=== PATIENT | female | born 1950 | race Caucasian/White ===

== ENCOUNTER 2018-05-30 13:37 | Inpatient (IN) | payer MEDICARE, MEDICAID ==
[2018-05-30] MEDS ORDERED: 0.9 % SODIUM CHLORIDE 1,000 ML BAG IV ONE (14:08)
--- NOTE | 2018-05-30 14:13 | Emergency Department Record ---
History of Present Illness - General Chief Complaint: Fever Stated Complaint: fever,runny nose,shakes, Time Seen by Provider: 05/30/18 14:01 Source: Patient Mode of Arrival: Ambulatory Limitations: No limitations - History of Present Illness Initial Comments: The patient is here due to not feeling well for 3 days. She has been weak and fatigued and her resting tremor has been worse. She denies any SANDS, ST, cough, AP , CP or dysuria. She was seen in the family practice clinic and was sent to the ER for eval. Complaint: Fever, Malaise, Weakness Onset/Timin -: Days(s) Temperature Source: Subjective Treatments Prior to Arrival: None - Related Data Home Medications Medication Instructions Recorded Confirmed Last Taken Cholecalciferol (Vitamin D3) 2,000 unit PO DAILY 05/30/18 05/30/18 05/30/18 [Vitamin D3] Allergies Allergy/AdvReac Type Severity Reaction Status Date / Time No Known Drug Allergies Allergy Unknown Verified 05/30/18 13:42 [NO KNOWN DRUG ALLERGIES] Travel Screening - Travel/Exposure Within Last 30 Days Have you traveled within the last 30 days?: Yes Location Detail:: [place] - Travel/Exposure Within Last Year Have you traveled outside the [place] in the last year?: No - Additonal Travel Details Have you been exposed to anyone with a communicable illness?: No - Travel Symptoms Symptom Screening: None Review of Systems Constitutional: Reports: Malaise. Denies: Chills, Fever Eyes: Denies: Eye discharge ENT: Denies: Congestion Respiratory: Reports: Cough (chronic.). Denies: Dyspnea Cardiovascular: Denies: Arrhythmia, Chest pain Endocrine: Reports: Fatigue Gastrointestinal: Denies: Diarrhea, Nausea Genitourinary: Denies: Dysuria Musculoskeletal: Denies: Back pain Skin: Denies: Bruising Past Medical History - SOCIAL HISTORY Smoking Status: Current every day smoker Alcohol Use: None Drug Use: None - RESPIRATORY Hx Respiratory Disorders: No - CARDIOVASCULAR Hx Cardio Disorders: No - NEURO Hx Neuro Disorders: Yes Hx Seizures: Yes - GI Hx GI Disorders: No - Hx Genitourinary Disorders: No - ENDOCRINE Hx Endocrine Disorders: Yes Hx Thyroid Disease: Yes - MUSCULOSKELETAL Hx Musculoskeletal Disorders: No - PSYCH Hx Psych Problems: No - HEMATOLOGY/ONCOLOGY Hx Hematology/Oncology Disorders: No Family Medical History Any Significant Family History?: Yes Hx Cancer: Father, Brother/Sister Hx Resp Disorders: Father Physical Exam - General General Appearance: Alert, Oriented x3, Cooperative, No acute distress - Head Head exam: Atraumatic, Normocephalic, Normal inspection - Eye Eye exam: Normal appearance, PERRL, EOMI - Neck Neck exam: Normal inspection, Full ROM. negative: Tenderness - Respiratory Respiratory exam: Normal lung sounds bilaterally. negative: Respiratory distress - Cardiovascular Cardiovascular Exam: Regular rate, Normal rhythm, Normal heart sounds - GI/Abdominal GI/Abdominal exam: Soft, Normal bowel sounds. negative: Tenderness - Extremities Extremities exam: Normal inspection, Full ROM, Normal capillary refill. negative: Tenderness - Back Back exam: Reports: Normal inspection, Full ROM. Denies: Muscle spasm, Rash noted, Tenderness - Neurological Neurological exam: Alert, Normal gait, Oriented X3, Other (The patient does have a resting tremor that she says is worse for the last few days.). negative : Abnormal gait, Altered, Motor sensory deficit - Psychiatric Psychiatric exam: negative: Agitated, Anxious - Skin Skin exam: negative: Petechiae, Rash Course Vital Signs 05/30/18 13:46 Temperature 101.1 F H Pulse Rate 101 H Respiratory 20 Rate Blood Pressure 128/64 Pulse Ox 99 - Reevaluation(s) Reevaluation #1: The patient is doing well at this time. She is hemodynamically stable. I did discuss the pneumonia on xray and the need for admission and the patient agreed. I then did discuss the case with Corinne (OIL TESTER) and she does accept the admission. 05/30/18 15:24 Reevaluation #2: I also did discuss with Corinne the need to order a chest CT while inpatient to make sure there is no L lung tumor. She does agree to the plan. 05/30/18 15:32 Medical Decision Making - Data Complexity MDM Data: Labs Ordered and/or Reviewed, X-Ray Ordered and/or Reviewed - Lab Data Result diagrams: 05/30/18 13:50 05/30/18 13:50 - Radiology Data Radiology results: Report reviewed (CXR: L sided pneumonia.) Disposition Disposition: Admit Clinical Impression: Pneumonia, organism unspecified Disposition: Still a Patient at [facility] Decision to Admit: Admit from ER Decision to Admit Date: 05/30/18 Decision to Admit Time: 15:25 Accepting Physician: Gertrude Time Discussed w/Accepting Physician: 15:25 Condition: (2) Stable Forms: Patient Portal Access Time of Disposition: 15:25 Quality - Quality Measures Quality Measures: N/A - Blood Pressure Screening View Details: Yes Does Patient Have Any of the Following: No Blood Pressure Classification: Pre-Hypertensive BP Reading Systolic Measurement: 128 Diastolic Measurement: 64 Screening for High Blood Pressure: < Pre-Hypertensive BP, F/U Documented > [ [id number]] Pre-Hypertensive Follow-up Interventions: Referral to alternative/primary care provider.
[2018-05-30 14:33] LABS: HEMATOCRIT 44.3 % (35.0-47.0); HEMOGLOBIN 15.1 gm/dl (11.6-16.0); MEAN CELL VOLUME 91.3 fl (81-97); MEAN CORPUSCULAR HEMOGLOBIN 31.1 pg (27-33); MEAN CORPUSCULAR HGB CONC 34.1 g/dl (32-36); PLATELET COUNT 201 K/uL (130-400); RED BLOOD COUNT 4.85 M/uL (3.80-5.40); RED CELL DISTRIBUTION WIDTH 12.3 % (11.5-14.5); WHITE BLOOD COUNT W/O DIFF 10.6 K/uL (4.2-12.2)
[2018-05-30 14:44] LABS: BLOOD UREA NITROGEN 18 mg/dL (8-23); CREATININE 0.8 mg/dL (0.5-0.9); EST GLOMERULAR FILTRATION RATE > 60 mL/min
[2018-05-30] MEDS ORDERED: ACETAMINOPHEN 325 MG TAB PO ONE (14:46)
[2018-05-30 14:47] LABS: GLUCOSE,RANDOM 137 mg/dL (74-109)
[2018-05-30 14:49] LABS: C-REACTIVE PROTEIN 25.15 mg/dL (<0.5); CARBAMAZEPINE (TEGRETOL) 9.2 ug/mL (4.0-12.0)
[2018-05-30] MEDS ORDERED: POTASSIUM CHLORIDE 20 MEQ TABLET PO ONE (15:03)
[2018-05-30] MEDS ORDERED: CEFTRIAXONE SODIUM 1 GM in 0.9 % SODIUM CHLORIDE 100ML 100 ML IVPB ONE (15:04)
[2018-05-30] MEDS ORDERED: AZITHROMYCIN 500 MG in 0.9 % SODIUM CHLORIDE 250ML 250 ML IVPB ONE (15:05)
[2018-05-30 15:51] LABS: URINE APPEARANCE CLEAR; URINE BILIRUBIN SMALL (NEGATIVE); URINE BLOOD SMALL (NEGATIVE); URINE COLOR ORANGE; URINE GLUCOSE (UA) NEGATIVE (NEGATIVE); URINE KETONE NEGATIVE (NEGATIVE); URINE LEUKOCYTE ESTERASE NEGATIVE (NEGATIVE); URINE NITRITE NEGATIVE (NEGATIVE)
[2018-05-30 16:00] LABS: URINE AMORPHOUS SEDIMENT 2+; URINE MUCUS HEAVY; URINE RBC 0 - 2 (NONE SEEN); URINE WBC 0 - 2 (0-2/hpf)
[2018-05-30] MEDS: ACETAMINOPHEN 325 MG TAB PO PRN (20:06)
[2018-05-30] MEDS: LEVETIRACETAM 500 MG TABLET PO SCH ×2 (21:56→22:03)
[2018-05-30] MEDS: QUETIAPINE FUMARATE 100 MG TABLET PO SCH (21:56)
[2018-05-30] MEDS ORDERED: CARBAMAZEPINE 200 MG TABLET PO SCH (22:00)
[2018-05-30] MEDS ORDERED: TOPIRAMATE 100MG TABLET PO SCH (22:00)
[2018-05-30] MEDS: IPRATROPIUM/ALBUTEROL (0.5MG/3MG) NEB INH PRN (22:14)
[2018-05-30] MEDS: 0.9 % SODIUM CHLORIDE 1000ML 1,000 ML IV PRN (22:15)
[2018-05-30] MEDS: IBUPROFEN 600 MG TABLET PO PRN (22:53)
[2018-05-31] MEDS: 0.9 % SODIUM CHLORIDE 1000ML 1,000 ML IV PRN ×2 (06:15→14:55)
[2018-05-31] MEDS: CEFTRIAXONE 1GM/50ML BAG 1 GM/50 ML BAG IVPB SCH ×2 (06:21→18:27)
[2018-05-31] MEDS: LEVOTHYROXINE SODIUM 25 MCG TABLET PO SCH (06:22)
[2018-05-31] MEDS: ACETAMINOPHEN 325 MG TAB PO PRN ×2 (06:22→22:29)
[2018-05-31 06:40] LABS: BASO % 0.2 % (0-6); GRAN % 78.6 % (47-80); HEMATOCRIT 38.8 % (35.0-47.0); HEMOGLOBIN 12.7 gm/dl (11.6-16.0); LYMPH % 12.9 % (16-45); MEAN CELL VOLUME 92.6 fl (81-97); MEAN CORPUSCULAR HEMOGLOBIN 30.3 pg (27-33); MEAN CORPUSCULAR HGB CONC 32.7 g/dl (32-36); MEAN PLATELET VOLUME 9.5 fl (7.4-10.4); MONO % 8.3 % (0-9); PLATELET COUNT 149 K/uL (130-400); RED BLOOD COUNT 4.19 M/uL (3.80-5.40); RED CELL DISTRIBUTION WIDTH 12.3 % (11.5-14.5); WHITE BLOOD COUNT W/O DIFF 6.3 K/uL (4.2-12.2)
[2018-05-31 06:58] LABS: ALB/GLOB RATIO 0.9 (1.1-1.8); ALKALINE PHOSPHATASE 68 U/L (35-104); ALT/SGPT 18 U/L (<33); AST/SGOT 21 U/L (10.0-35.0); BLOOD UREA NITROGEN 12 mg/dL (8-23); CREATININE 0.5 mg/dL (0.5-0.9); EST GLOMERULAR FILTRATION RATE > 60 mL/min; GLUCOSE,RANDOM 98 mg/dL (74-109); TOTAL PROTEIN 6.2 g/dL (6.6-8.7)
--- NOTE | 2018-05-31 07:43 | RADIOLOGY REPORT ---
EXAM: CHEST, TWO VIEWS HISTORY: DIFFICULTY BREATHING. TECHNIQUE: Frontal and lateral views of the chest were performed. Comparison: None. FINDINGS: The heart size is normal. There is a round opacity in the superior segment of the left lower lobe measuring 5.2 x 6.1 cm. This may represent focal pneumonitis. Neoplasm is not excluded. No pleural effusion. The osseous structures are normal. IMPRESSION: 5.2 X 6.1 CM FOCAL OPACITY IN THE SUPERIOR SEGMENT OF THE LEFT LOWER LOBE. THIS MAY REPRESENT PNEUMONIA. NEOPLASM NOT EXCLUDED. JOB NUMBER: [id number] MTDD
--- NOTE | 2018-05-31 07:50 | CT SCAN REPORT ---
EXAM: CT OF THE CHEST WITH CONTRAST HISTORY: FEVER. TECHNIQUE: Standard CT imaging of the chest was obtained with intravenous contrast. Coronal and sagittal reformations are provided. Comparison: None. FINDINGS: There are coronary artery calcifications. No pericardial effusion. Mildly enlarged left hilar lymph nodes measure up to 12 mm in short axis diameter. No mediastinal adenopathy. The upper abdomen demonstrates colonic diverticulosis. There are a few calcified pleural plaques. In the left lower lobe there is mass like consolidation measuring 6.4 x 5.6 x 5.6 cm. The lungs are otherwise clear. No pleural effusion or pneumothorax. IMPRESSION: 1. MASS LIKE CONSOLIDATION IN THE LEFT LOWER LOBE COMPATIBLE WITH PNEUMONIA GIVEN THE PATIENT'S HISTORY OF FEVER. FOLLOW-UP RADIOGRAPHS ARE RECOMMENDED IN 6-8 WEEKS TO INSURE RESOLUTION MALIGNANCY, SPECIFICALLY ADENOCARCINOMA, COULD HAVE A SIMILAR APPEARANCE. 2. MILD LEFT HILAR ADENOPATHY. 3. CORONARY ARTERY DISEASE. JOB NUMBER: [id number] MTDD
[2018-05-31] MEDS: ENOXAPARIN 40 MG/0.4 ML SYR SQ SCH (09:46)
[2018-05-31] MEDS: LEVETIRACETAM 500 MG TABLET PO SCH ×2 (09:46→15:39)
--- NOTE | 2018-05-31 10:58 | History & Physical ---
History of Present Illness - Date of Service Date of Service for History & Physical: 05/31/18 - History of Present Illness Admitting Diagnosis: 1. Left Lung Pneumonia History of Present Illness: 67 year old female admitted for left lower lobe pneumonia. Patient was seen by PCP earlier in the day for increased tremors, fatigued, and weakness x 3 days. Patient denied headache, cough, chest pain, shortness of breath, or urinary symptoms. Patient was found to have a temp of 102 and instructed to be seen in the ED for complete workup. Patient's only significant medical history is seizures, hypothyroidism and current smoker. PCP: Margaret Lee [employer] ED Course: Temp: 101.1F, HR 101, RR 20, BP 128/64, Pulse ox 99% CBC unremarkable, K+ 3.0 replaced with PO K+, CRP elevated at 25 Chest x-ray indicates LLL infiltrate, recommend CT to rule out neoplasm Chest CT: consolidation in LLL likely pneumonia due to clinical symptoms, however recommend repeat imaging in 6-8 weeks Tylenol for fever IV fluids, Rocephin, Azithromycin 05/31/18: Patient A&O x 4, resting comfortably in bed. Patient was febrile throughout the night, with a temp of 101.9. Received Tylenol, motrin, and fluids. Blood cultures were drawn. Will continue Zithromax and Rocephin, along with IV fluids. CBC and CMP unremarkable today. Patient remains on RA. Continues to have fatigue, will continue to monitor and hydrate at this time. Travel Screening - Travel/Exposure Within Last 30 Days Have you traveled within the last 30 days?: No Location Detail:: [place] - Travel/Exposure Within Last Year Have you traveled outside the [place] in the last year?: No - Additonal Travel Details Have you been exposed to anyone with a communicable illness?: No - Travel Symptoms Symptom Screening: None Review of Systems Constitutional: Reports: Malaise. Denies: Chills, Fever Eyes: Denies: Eye discharge ENT: Denies: Congestion Respiratory: Reports: Cough (chronic.). Denies: Dyspnea Cardiovascular: Denies: Arrhythmia, Chest pain Endocrine: Reports: Fatigue Gastrointestinal: Denies: Diarrhea, Nausea Genitourinary: Denies: Dysuria Musculoskeletal: Denies: Back pain Skin: Denies: Bruising Past Medical History - SOCIAL HISTORY Smoking Status: Current every day smoker - RESPIRATORY Hx Respiratory Disorders: No - CARDIOVASCULAR Hx Cardio Disorders: No - NEURO Hx Neuro Disorders: Yes Hx Seizures: Yes - GI Hx GI Disorders: No - Hx Genitourinary Disorders: No - ENDOCRINE Hx Endocrine Disorders: Yes Hx Thyroid Disease: Yes - MUSCULOSKELETAL Hx Musculoskeletal Disorders: No - PSYCH Hx Psych Problems: No - HEMATOLOGY/ONCOLOGY Hx Hematology/Oncology Disorders: No Family Medical History Any Significant Family History?: Yes Hx Cancer: Father, Brother/Sister Hx Resp Disorders: Father H&P Meds/Allergies - Allergies Allergies: Allergies Allergy/AdvReac Type Severity Reaction Status Date / Time No Known Drug Allergies Allergy Unknown Verified 05/30/18 13:42 [NO KNOWN DRUG ALLERGIES] - Home Medications Home Medications Medication Instructions Recorded Confirmed Last Taken Cholecalciferol (Vitamin D3) 2,000 unit PO DAILY 05/30/18 05/30/18 05/30/18 [Vitamin D3] Carbamazepine [Tegretol] 800 mg PO QHS 05/31/18 05/31/18 Unknown Levetiracetam [Keppra] 1,500 mg PO 0800,1600 05/31/18 05/31/18 Unknown Topiramate [Topamax] 200 mg PO QHS 05/31/18 05/31/18 Unknown - Active Medications Active Medications: Current Medications Acetaminophen (Tylenol 325mg) 650 mg PO Q4H PRN PRN Reason: PAIN - MILD(1-4)/FEVER Last Admin: 05/31/18 06:22 Dose: 650 mg Albuterol/Ipratropium (Duoneb) 3 ml INH RESP.Q4H PRN PRN Reason: WHEEZING Last Admin: 05/30/18 22:14 Dose: 3 ml Carbamazepine (Tegretol) 800 mg PO QHS [place] Enoxaparin Sodium (Lovenox) 40 mg SQ DAILY [place] Last Admin: 05/31/18 09:46 Dose: 40 mg Azithromycin 500 mg/ Sodium (Chloride) 250 mls @ 250 mls/hr IVPB Q24H [place] Stop: 06/05/18 17:01 CEFTRIAXONE 1GM/50ML BAG (Ceftriaxone 1 Gm-D5w Bag) 1 gm in 50 mls @ 100 mls/ hr IVPB Q12H [place] Last Infusion: 05/31/18 06:54 Dose: Infused Sodium Chloride () 1,000 mls @ 125 mls/hr IV .Q8H PRN PRN Reason: LARGE VOLUME IV Last Admin: 05/31/18 06:15 Dose: 125 mls/hr Ibuprofen (Motrin 600mg) 600 mg PO Q8H PRN PRN Reason: FEVER >101 Last Admin: 05/30/18 22:53 Dose: 600 mg Levetiracetam (Keppra) 1,500 mg PO 1000,1600 [facility] Last Admin: 05/31/18 09:46 Dose: 1,500 mg Levothyroxine Sodium (Synthroid) 25 mcg PO DAILYAC [facility] Last Admin: 05/31/18 06:22 Dose: 25 mcg Quetiapine Fumarate (Seroquel) 100 mg PO QHS [facility] Last Admin: 05/30/18 21:56 Dose: 100 mg Topiramate (Topiramate) 200 mg PO QHS [facility] Physical Exam - Vital Signs Vital Signs: Vital Signs - Last 24 Hrs Temp Pulse Pulse Resp BP BP Pulse Ox 05/31/18 09:18 16 05/31/18 08:50 99.5 F 91 H 18 114/62 96 05/31/18 04:20 98.3 F 05/31/18 00:18 98.8 F 05/30/18 22:15 93 H 24 24 L 05/30/18 22:00 101.9 F H 05/30/18 20:00 100.9 F H 126 H 20 117/83 97 05/30/18 18:05 16 05/30/18 16:30 100.7 F H 82 24 103/65 95 05/30/18 16:22 98.5 F 85 20 104/68 99 05/30/18 13:46 101.1 F H 101 H 20 128/64 99 - General General Appearance: Alert, Oriented x3, Cooperative, No acute distress Limitations: No limitations - Head Head exam: Atraumatic, Normocephalic, Normal inspection - Eye Eye exam: Normal appearance, PERRL, EOMI - ENT ENT exam: Normal exam, Mucous membranes moist Mouth exam: Normal external inspection - Neck Neck exam: Normal inspection, Full ROM. negative: Tenderness - Respiratory Respiratory exam: Rhonchi, Wheezes. negative: Respiratory distress - Cardiovascular Cardiovascular Exam: Regular rate, Normal rhythm, Normal heart sounds Peripheral Pulses: 2+: Radial (R), Radial (L) - GI/Abdominal GI/Abdominal exam: Soft, Normal bowel sounds. negative: Tenderness - Rectal Rectal exam: Deferred - exam: Deferred - Extremities Extremities exam: Normal inspection, Full ROM, Normal capillary refill. negative: Tenderness - Back Back exam: Reports: Normal inspection, Full ROM. Denies: Muscle spasm, Rash noted, Tenderness - Neurological Neurological exam: Alert, Normal gait, Oriented X3, Other (The patient does have a resting tremor that she says is worse for the last few days.). negative : Abnormal gait, Altered, Motor sensory deficit - Psychiatric Psychiatric exam: negative: Agitated, Anxious - Skin Skin exam: Pallor. negative: Petechiae, Rash Results - Labs Result Diagrams: 05/31/18 06:29 05/31/18 06:29 Labs Last 24 Hours: Laboratory Results - last 24 hr 05/30/18 05/30/18 05/30/18 13:50 13:50 15:30 WBC 10.6 RBC 4.85 Hgb 15.1 Hct 44.3 MCV 91.3 MCH 31.1 MCHC 34.1 RDW 12.3 Plt Count 201 MPV 10.0 Gran % Neutrophils % 83.0 H Band Neutrophils % 3.0 Lymphocytes % Monocytes % Eosinophils % Not Reportable Basophils % Not Reportable Lymphocytes 7.0 L Monocytes 7.0 Basophils 0.0 Eosinophil Count 0.0 Sodium 137 Potassium 3.1 L Chloride 98 Carbon Dioxide 21.0 L Anion Gap 18.0 H BUN 18 Creatinine 0.8 Estimated GFR > 60 Random Glucose 137 H Calcium 9.6 Total Bilirubin AST ALT Alkaline Phosphatase C-Reactive Protein 25.15 H Total Protein Albumin Globulin Albumin/Globulin Ratio Urine Color [place] H Urine Appearance Clear Urine pH 5.5 Ur Specific [place] >= 1.030 Urine Protein 30 mg/dl H Urine Glucose (UA) Negative Urine Ketones Negative Urine Blood Small H Urine Nitrite Negative Urine Bilirubin Small H Urine Urobilinogen 1.0 Ur Leukocyte Esterase Negative Urine RBC 0 - 2 Urine WBC 0 - 2 Ur Epithelial Cells 7 - 10 Amorphous Sediment 2+ Urine Mucus Heavy Carbamazepine 9.2 05/31/18 05/31/18 06:29 06:29 WBC 6.3 RBC 4.19 Hgb 12.7 Hct 38.8 MCV 92.6 MCH 30.3 MCHC 32.7 RDW 12.3 Plt Count 149 MPV 9.5 Gran % 78.6 Neutrophils % Band Neutrophils % Lymphocytes % 12.9 L Monocytes % 8.3 Eosinophils % 0.0 Basophils % 0.2 Lymphocytes Monocytes Basophils Eosinophil Count Sodium 138 Potassium 3.4 Chloride 103 Carbon Dioxide 20.0 L Anion Gap 15.0 BUN 12 Creatinine 0.5 Estimated GFR > 60 Random Glucose 98 Calcium 8.3 L Total Bilirubin 0.40 AST 21 ALT 18 Alkaline Phosphatase 68 C-Reactive Protein Total Protein 6.2 L Albumin 3.0 L Globulin 3.2 Albumin/Globulin Ratio 0.9 L Urine Color Urine Appearance Urine pH Ur Specific [place] Urine Protein Urine Glucose (UA) Urine Ketones Urine Blood Urine Nitrite Urine Bilirubin Urine Urobilinogen Ur Leukocyte Esterase Urine RBC Urine WBC Ur Epithelial Cells Amorphous Sediment Urine Mucus Carbamazepine VTE H&P Assessment - Risk for VTE Risk for VTE: Yes Risk Level: Moderate Risk Assessment Date: 05/30/18 Risk Assessment Time: 17:00 VTE Orders Placed or Will Be Placed: Yes Plan - Inpatient Certification Inpatient Certification: Admit to inpatient care: Based on my medical assessment, after consideration of patient's risk factors (age, co-morbidities and patient presenting symptoms and acuity), I expect that this patient will remain in the hospital greater than or equal to two midnights and that the services needed warrant inpatient care because: Patient Risk Factors: [age, fever, pneumonia, current smoker] Estimated length of stay: The patient may reasonably be expected to be discharged or transferred to a hospital within 48-72 hours after admission to [facility]. Services needed: [IV fluids, IV antibiotics, breathing treatments, serial labwork] Post hospital care (if known): [] I certify that my determination is in accordance with my understanding of Medicare requirements for reasonable and necessary inpatient services. 05/31/18 11:02 - Detailed Diagnosis and Plan (1) Pneumonia, organism unspecified Current Visit: Yes Status: Acute Base Code: J18.9 - PNEUMONIA, UNSPECIFIED ORGANISM Comment: 05/31/18: Chest x-ray in ED positive for LLL pneumonia -Chest CT completed to rule out neoplasm, could not exclude at this time. Recommend repeat imaging in 6-8 weeks -IV fluids -Rocephin and Zithromax -Blood cultures -CBC and CMP wnl (2) Fever Current Visit: Yes Status: Acute Base Code: R50.9 - FEVER, UNSPECIFIED Comment: 05/31/18: Patient reported tremors and chills at home, no recordered temperature -Febrile upon admission, high of 101.9F overnight -Tylenol and Motrin prn -IV fluids -Blood cultures -Will continue to monitor VS q8h -IV Rocephin and Zithromax (3) DVT prophylaxis Current Visit: Yes Status: Acute Base Code: [id number] - Comment: 05/31/18: Moderate risk due to hospitalization and decreased mobility -Lovenox 40mg SQ during admission (4) Full code status Current Visit: Yes Status: Acute Base Code: Z78.9 - OTHER SPECIFIED HEALTH STATUS Comment: 05/31/18: Full code status this admission
[2018-05-31] MEDS: IPRATROPIUM/ALBUTEROL (0.5MG/3MG) NEB INH PRN (12:42)
[2018-05-31] MEDS: IBUPROFEN 600 MG TABLET PO PRN (14:05)
[2018-05-31] MEDS ORDERED: CEFTRIAXONE SODIUM 1 GM in 0.9 % SODIUM CHLORIDE 100ML 100 ML IVPB SCH (15:00)
[2018-05-31] MEDS ORDERED: AZITHROMYCIN 500 MG in 0.9 % SODIUM CHLORIDE 250ML 250 ML IVPB SCH (17:00)
[2018-05-31] MEDS ORDERED: CARBAMAZEPINE 200 MG TABLET PO SCH (22:00)
[2018-05-31] MEDS ORDERED: TOPIRAMATE 100MG TABLET PO SCH (22:00)
[2018-05-31] MEDS: QUETIAPINE FUMARATE 100 MG TABLET PO SCH (22:28)
[2018-06-01] MEDS: 0.9 % SODIUM CHLORIDE 1000ML 1,000 ML IV PRN (03:15)
[2018-06-01] MEDS: IPRATROPIUM/ALBUTEROL (0.5MG/3MG) NEB INH PRN (04:43)
[2018-06-01] MEDS: CEFTRIAXONE 1GM/50ML BAG 1 GM/50 ML BAG IVPB SCH (06:00)
[2018-06-01] MEDS: ACETAMINOPHEN 325 MG TAB PO PRN (06:42)
[2018-06-01] MEDS: LEVOTHYROXINE SODIUM 25 MCG TABLET PO SCH (06:42)
[2018-06-01 06:52] LABS: GRAN % 63.8 % (47-80); HEMATOCRIT 33.4 % (35.0-47.0); HEMOGLOBIN 11.1 gm/dl (11.6-16.0); LYMPH % 22.9 % (16-45); MEAN CELL VOLUME 91.8 fl (81-97); MEAN CORPUSCULAR HGB CONC 33.2 g/dl (32-36); MEAN PLATELET VOLUME 9.6 fl (7.4-10.4); MONO % 13.3 % (0-9); PLATELET COUNT 157 K/uL (130-400); RED BLOOD COUNT 3.64 M/uL (3.80-5.40); RED CELL DISTRIBUTION WIDTH 12.2 % (11.5-14.5); WHITE BLOOD COUNT W/O DIFF 3.8 K/uL (4.2-12.2)
[2018-06-01 06:54] LABS: MEAN CORPUSCULAR HEMOGLOBIN 30.4 pg (27-33)
[2018-06-01 07:08] LABS: ALB/GLOB RATIO 1.1 (1.1-1.8); ALBUMIN 2.9 g/dL (4.0-5.0); ALKALINE PHOSPHATASE 64 U/L (35-104); ALT/SGPT 15 U/L (<33); AST/SGOT 17 U/L (10.0-35.0); BLOOD UREA NITROGEN 6 mg/dL (8-23); CREATININE 0.4 mg/dL (0.5-0.9); EST GLOMERULAR FILTRATION RATE > 60 mL/min; GLUCOSE,RANDOM 99 mg/dL (74-109); TOTAL PROTEIN 5.6 g/dL (6.6-8.7)
[2018-06-01] MEDS: LEVETIRACETAM 500 MG TABLET PO SCH (10:15)
[2018-06-01] MEDS: ENOXAPARIN 40 MG/0.4 ML SYR SQ SCH (10:17)
[2018-06-01] MEDS ORDERED: POTASSIUM CHLORIDE 20 MEQ TABLET PO ONE (10:29)
--- NOTE | 2018-06-01 12:33 | Discharge Summary ---
Providers Discharge Summary Date: 06/01/18 Date of admission: 05/30/18 16:07 Expected Date of Discharge: 06/01/18 Attending physician: ALE HANKS Primary care physician: Margaret Lee N.P. Physical Exam - Vital Signs Vital Signs: Vital Signs - Last 24 Hrs Temp Pulse Pulse Resp BP Pulse Ox 06/01/18 08:00 99.3 F 81 16 117/60 96 06/01/18 04:46 89 18 98 06/01/18 02:45 99.6 F 06/01/18 00:15 100.2 F H 05/31/18 20:00 97.5 F L 75 18 123/70 97 05/31/18 17:10 99.4 F 81 18 101/59 97 05/31/18 14:57 101.6 F H 05/31/18 14:00 103.2 F H 95 H 96 05/31/18 12:46 96 H 18 96 - General General Appearance: Alert, Oriented x3, Cooperative, No acute distress Limitations: No limitations - Head Head exam: Atraumatic, Normocephalic, Normal inspection - Eye Eye exam: Normal appearance, PERRL, EOMI - ENT ENT exam: Normal exam, Mucous membranes moist Mouth exam: Normal external inspection - Neck Neck exam: Normal inspection, Full ROM. negative: Tenderness - Respiratory Respiratory exam: Decreased breath sounds. negative: Respiratory distress - Cardiovascular Cardiovascular Exam: Regular rate, Normal rhythm, Normal heart sounds Peripheral Pulses: 2+: Radial (R), Radial (L) - GI/Abdominal GI/Abdominal exam: Soft, Normal bowel sounds. negative: Tenderness - Rectal Rectal exam: Deferred - exam: Deferred - Extremities Extremities exam: Normal inspection, Full ROM, Normal capillary refill. negative: Tenderness - Back Back exam: Reports: Normal inspection, Full ROM. Denies: Muscle spasm, Rash noted, Tenderness - Neurological Neurological exam: Alert, Normal gait, Oriented X3, Other (The patient does have a resting tremor that she says is worse for the last few days.). negative : Abnormal gait, Altered, Motor sensory deficit - Psychiatric Psychiatric exam: negative: Agitated, Anxious - Skin Skin exam: Pallor. negative: Petechiae, Rash Hospitalization - Hospitalization Admission Diagnosis: 1. Left Lung Pneumonia - Problem List/Discharge Diagnosis (1) Pneumonia, organism unspecified Current Visit: Yes Status: Acute Base Code: J18.9 - PNEUMONIA, UNSPECIFIED ORGANISM Comment: 06/01/18: Chest x-ray in ED positive for LLL pneumonia -Chest CT completed to rule out neoplasm, could not exclude at this time. Recommend repeat imaging in 6-8 weeks -IV fluids dc -Rocephin and Zithromax -Blood cultures pending -CBC and CMP wnl, procalcitonin improved (2) Fever Current Visit: Yes Status: Acute Base Code: R50.9 - FEVER, UNSPECIFIED Comment: 06/01/18: Patient reported tremors and chills at home, no recordered temperature -Febrile upon admission, nearly 24 hours with only low-grade temps at this time -Tylenol and Motrin prn -Blood cultures pending -Will continue to monitor VS q8h -IV Rocephin and Zithromax (3) DVT prophylaxis Current Visit: Yes Status: Acute Base Code: [id number] - Comment: 06/01/18: Moderate risk due to hospitalization and decreased mobility -Lovenox 40mg SQ during admission, no need to continue at home as patient will resume normal activity (4) Full code status Current Visit: Yes Status: Acute Base Code: Z78.9 - OTHER SPECIFIED HEALTH STATUS Comment: 06/01/18: Full code status this admission - Hospitalization Course Disposition: Home, Self-Care Hospital Course: 67 year old female admitted for left lower lobe pneumonia. Patient was seen by PCP earlier in the day for increased tremors, fatigued, and weakness x 3 days. Patient denied headache, cough, chest pain, shortness of breath, or urinary symptoms. Patient was found to have a temp of 102 and instructed to be seen in the ED for complete workup. Patient's only significant medical history is seizures, hypothyroidism and current smoker. PCP: Margaret Lee [facility] ED Course: Temp: 101.1F, HR 101, RR 20, BP 128/64, Pulse ox 99% CBC unremarkable, K+ 3.0 replaced with PO K+, CRP elevated at 25 Chest x-ray indicates LLL infiltrate, recommend CT to rule out neoplasm Chest CT: consolidation in LLL likely pneumonia due to clinical symptoms, however recommend repeat imaging in 6-8 weeks Tylenol for fever IV fluids, Rocephin, Azithromycin 05/31/18: Patient A&O x 4, resting comfortably in bed. Patient was febrile throughout the night, with a temp of 101.9. Received Tylenol, motrin, and fluids. Blood cultures were drawn. Will continue Zithromax and Rocephin, along with IV fluids. CBC and CMP unremarkable today. Patient remains on RA. Continues to have fatigue, will continue to monitor and hydrate at this time. 06/01/18: Patient A&O x 4, resting comfortably in bed. Patient has been afebrile for nearly 24 hours, clinical improvement in shortness of breath and fatigue. CBC and CMP unremarkable, procalcitonin improved with IV rocephin and Zithromax. Will dc home on Cefdinir. Procedures: Imaging and X-Rays 05/30/18 14:08 CHEST 2 VIEWS [RAD] Stat 05/30/18 21:30 CHEST W CONTRAST [CT] Urgent Cardiology Procedures 05/30/18 16:35 Child Psychologist .Continuous Abnormal Labs: Abnormal Lab Results 05/30/18 05/30/18 05/30/18 Range/Units 13:50 13:50 15:30 WBC (4.2-12.2) K/uL RBC (3.80-5.40) M/uL Hgb (11.6-16.0) gm/dl Hct (35.0-47.0) % Neutrophils % 83.0 H (47-80) % Lymphocytes % (16-45) % Monocytes % (0-9) % Lymphocytes 7.0 L (16-45) % Potassium 3.1 L (3.4-4.5) mmol/L Carbon Dioxide 21.0 L (22-29) mmol/L Anion Gap 18.0 H (7-16) BUN (8-23) mg/dL Creatinine (0.5-0.9) mg/dL Random Glucose 137 H (74-109) mg/dL Calcium (8.8-10.2) mg/dL C-Reactive Protein 25.15 H (<0.5) mg/dL Total Protein (6.6-8.7) g/dL Albumin (4.0-5.0) g/dL Albumin/Globulin Ratio (1.1-1.8) Urine Color [place] H Urine Protein 30 mg/dl H (NEGATIVE) Urine Blood Small H (NEGATIVE) Urine Bilirubin Small H (NEGATIVE) 05/31/18 05/31/18 06/01/18 Range/Units 06:29 06:29 06:35 WBC 3.8 L (4.2-12.2) K/uL RBC 3.64 L (3.80-5.40) M/uL Hgb 11.1 L (11.6-16.0) gm/dl Hct 33.4 L (35.0-47.0) % Neutrophils % (47-80) % Lymphocytes % 12.9 L (16-45) % Monocytes % 13.3 H (0-9) % Lymphocytes (16-45) % Potassium (3.4-4.5) mmol/L Carbon Dioxide 20.0 L (22-29) mmol/L Anion Gap (7-16) BUN (8-23) mg/dL Creatinine (0.5-0.9) mg/dL Random Glucose (74-109) mg/dL Calcium 8.3 L (8.8-10.2) mg/dL C-Reactive Protein (<0.5) mg/dL Total Protein 6.2 L (6.6-8.7) g/dL Albumin 3.0 L (4.0-5.0) g/dL Albumin/Globulin Ratio 0.9 L (1.1-1.8) Urine Color Urine Protein (NEGATIVE) Urine Blood (NEGATIVE) Urine Bilirubin (NEGATIVE) 06/01/18 Range/Units 06:35 WBC (4.2-12.2) K/uL RBC (3.80-5.40) M/uL Hgb (11.6-16.0) gm/dl Hct (35.0-47.0) % Neutrophils % (47-80) % Lymphocytes % (16-45) % Monocytes % (0-9) % Lymphocytes (16-45) % Potassium 3.1 L (3.4-4.5) mmol/L Carbon Dioxide 18.0 L (22-29) mmol/L Anion Gap 17.0 H (7-16) BUN 6 L (8-23) mg/dL Creatinine 0.4 L (0.5-0.9) mg/dL Random Glucose (74-109) mg/dL Calcium 8.0 L (8.8-10.2) mg/dL C-Reactive Protein (<0.5) mg/dL Total Protein 5.6 L (6.6-8.7) g/dL Albumin 2.9 L (4.0-5.0) g/dL Albumin/Globulin Ratio (1.1-1.8) Urine Color Urine Protein (NEGATIVE) Urine Blood (NEGATIVE) Urine Bilirubin (NEGATIVE) Condition at Discharge: (2) Stable VTE Discharge VTE Reason For No Overlap Therapy: Not Indicated Discharge Medications - Discharge Medications Prescriptions: Cefdinir 300 mg PO BID 10 Days #20 capsule Home Medications: Ambulatory Orders Cholecalciferol (Vitamin D3) [Vitamin D3] 2,000 unit PO DAILY 05/30/18 [Last Taken 05/30/18] Carbamazepine [Tegretol] 800 mg PO QHS 05/31/18 [Last Taken Unknown] Levetiracetam [Keppra] 1,500 mg PO 0800,1600 05/31/18 [Last Taken Unknown] Topiramate [Topamax] 200 mg PO QHS 05/31/18 [Last Taken Unknown] Cefdinir 300 mg PO BID 10 Days #20 capsule 06/01/18 [Last Taken Unknown] Discharge Plan - Discharge Instructions Activity at Discharge: Increase Activity as Tolerated Diet at Discharge: Regular Diet Instructions: Community Acquired Pneumonia (DC) Additional Instructions: -Start taking the Cefdinir tonight, you will take 1 tab twice a day for 10 days total -You can take Tylenol and Motrin as needed for fevers you may still have -Follow-up with Debbiegen as scheduled Quality Measures - Quality Measures Quality Measures: Advance Directives, Documentation of Current Medications in Medical Record, Elder Maltreatment Screen and Follow-Up Plan, Screening for High Blood Pressure and F/U Documented - Current Medications Quality Measure: Measure #130: Documentation of Current Medications Documentation of Current Medications: <Current Medications Documented/Reviewed> [G1630] - Blood Pressure Screening Quality Measure: Screening for High Blood Pressure and Follow-Up Documented Does Patient Have Any of the Following: No Blood Pressure Classification: Normal BP Reading Systolic Measurement: 104 Diastolic Measurement: 68 Screening for High Blood Pressure: < Normal BP, F/U Not Required > [G9042] - Advance Directives Quality Measure: Measure #47: Care Plan Advance Directives Established: No Advance Directives Information Provided To Patient: Declined Advance Directives on File: No Living Will: No Power of Computer Peripheral Equipment Operator: Yes (Sister is DPOA, Bechel Smith) Advance Care Planning: Not Discussed or Documented [[id number]] - Elder Abuse Suspicion Index Screening: Elder Abuse Suspicion Index Screening Rely on people for bathing, dressing, shopping, banking, etc: No Prevented from getting food, clothes, medication, etc: No Made to feel shamed or threatened by someone: No Forced to sign papers or use money against will: No Feel afraid, touched in ways not wanted or hurt physically: No Poor eye contact, withdrawn, malnourished, cuts or bruises: No Screening Result: Negative result EASI Reference Information: Norman LUCIANO, Jarrett C, Vinod D, Aime Crain.Development and validation of a tool to assist physicians identification of elder abuse: The Elder Abuse Suspicion Index (EASI ). Journal of Elder Abuse and Neglect, 2008; 20 (3): 276-300. - Elder Maltreatment Screen Quality Measures: Elder Maltreatment Screen and Follow-Up Plan Elder Maltreatment Screen: <Negative, No Follow-Up Plan Required> [G8218]
== END 2018-06-01 15:00 | disposition home or self-care (01) | DRG 195 ==
LOC: ER 13:37 → MEDSURG 16:07
PROVIDERS: ADMIT Internal Medicine; ATTEND Internal Medicine
DX: J18.9 Pneumonia, unspecified organism (principal); R50.9 Fever, unspecified; E03.9 Hypothyroidism, unspecified; R25.1 Tremor, unspecified; F17.210 Nicotine dependence, cigarettes, uncomplicated
CPT/HCPCS: 71046; 71260; 80048; 80053; 80156; 81001; 84145; 85025; 85027; 86140; 87040; 94640; 96365; 99223; 99239; 99285; J0456; J0696; J1650; J7030; J7050